=== PATIENT | female | born 1935 | race Caucasian/White ===

== ENCOUNTER 2016-08-01 10:13 | Inpatient (IN) | payer MEDICARE, OTHER ==
[2016-08-01] MEDS ORDERED: Albuterol 6.7 GM Inhaler INH PRN (15:01)
[2016-08-01] MEDS ORDERED: Ondansetron 4 MG/2 ML SDV IVPUSH PRN (15:06)
--- NOTE | 2016-08-01 15:16 | PCM.HP ---
H&P History of Present Illness - General Date of Service: 08/01/16 Admit Problem/Dx: Admission Diagnosis/Problem Admission Diagnosis/Problem Weakness - History of Present Illness Initial Comments - Free Text/Narative: The patient is an 80-year-old lady who was transferred to a swing bed after right total knee arthroplasty. She has a history of hypertension, dyslipidemia, asthma. Onset of Symptoms: Reports: Other (since surgery) Location: Reports: Lower Extremity, Right (name) Quality: Reports: Sharp Severity: Moderate Improves with: Reports: Rest Worsens with: Reports: Movement Associated Symptoms: Denies: Chest Pain, Cough, Fever/Chills, Rash - Related Data Home Medications: Home Meds Acetaminophen [Tylenol] 650 mg PO QID PRN 08/01/16 [History] Aspirin [Aspirin EC] 325 mg PO BIDMEALS 08/01/16 [History] Calcium Carbonate [Tums] 1,000 mg PO DAILY 08/01/16 [History] Cyanocobalamin (Vitamin B-12) [Vitamin B-12] 1,000 mcg PO DAILY 08/01/16 [ History] Dorzolamide HCl/Timolol Maleat [Cosopt Eye Drops] 1 drop EYEBOTH BID 08/01/16 [ History] Ergocalciferol (Vitamin D2) [Vitamin D] 1,000 intunit PO DAILY 08/01/16 [History ] Ferrous Sulfate 325 mg PO DAILY 08/01/16 [History] Latanoprost [Xalatan 0.005% Ophth Soln] 1 drop EYEBOTH BEDTIME 08/01/16 [History ] Morphine [MS Contin] 15 mg PO Q12HR 08/01/16 [History] Multivitamin with Minerals [Multiple Vitamin] 1 tab PO DAILY 08/01/16 [History] Pravastatin Sodium [Pravachol] 20 mg PO BEDTIME 08/01/16 [History] Raloxifene HCl [Evista] 60 mg PO DAILY 08/01/16 [History] Sennosides [Senokot] 8.6 mg PO BID 08/01/16 [History] oxyCODONE 5 mg PO Q4H PRN 08/01/16 [History] traMADol [Ultram] 50 mg PO Q4HR PRN MDD 400 mg 08/01/16 [History] Past Medical History HEENT History: Reports: Cataract, Glaucoma Cardiovascular History: Reports: High Cholesterol Respiratory History: Reports: Asthma, Other (See Below) Other Respiratory History: seasonal allergies Gastrointestinal History: Reports: None Genitourinary History: Reports: UTI, Recurrent, Other (See Below) Other Genitourinary History: UTI last fall, prolapsed bladder and uterus INFORMATION ASSURANCE ANALYST History: Reports: Prolapsed Uterus, Other (See Below) Other OB/BYN History: Hx of benign breast biopsies Musculoskeletal History: Reports: Osteoarthritis, Osteoporosis Neurological History: Reports: None Psychiatric History: Reports: None Endocrine/Metabolic History: Reports: Hypothyroidism, Osteoporosis, Vitamin D Deficiency Hematologic History: Reports: B12 Deficiency, Iron Deficiency Immunologic History: Reports: None Oncologic (Cancer) History: Reports: None Dermatologic History: Reports: Eczema - Infectious Disease History Infectious Disease History: Reports: Chicken Pox, Measles, Scarlet Fever - Past Surgical History Head Surgeries/Procedures: Reports: None HEENT Surgical History: Reports: Cataract Surgery Cardiovascular Surgical History: Reports: None GI Surgical History: Reports: Hernia, Inguinal Female Surgical History: Reports: Hysterectomy Endocrine Surgical History: Reports: None Musculoskeletal Surgical History: Reports: Knee Replacement, Shoulder Surgery Social & Family History - Family History Family Medical History: Noncontributory - Tobacco Use Smoking Status *Q: Never Smoker Second Hand Smoke Exposure: No - Caffeine Use Caffeine Use: Reports: Soda - Recreational Drug Use Recreational Drug Use: No H&P Review of Systems - Review of Systems: Review Of Systems: See Below General: Denies: Fever Cardiovascular: Denies: Chest Pain Gastrointestinal: Denies: Abdominal Pain Musculoskeletal: Denies: Neck Pain Psychiatric: Denies: Confusion Neurological: Denies: Dizziness Hematologic/Lymphatic: Reports: Anemia Exam - Exam Exam: See Below - Vital Signs Vital Signs: Last Vital Signs Temp 37.1 C 08/01/16 13:28 Pulse 81 08/01/16 13:28 Resp 20 08/01/16 13:28 BP 128/48 L 08/01/16 13:28 Pulse Ox 98 08/01/16 13:28 Weight: 66.95 kg - Exam General: Alert, Oriented Neck: Supple Lungs: Clear to Auscultation, Normal Respiratory Effort Cardiovascular: Regular Rate, Regular Rhythm Abdomen: Normal Bowel Sounds, Soft Extremities: Edema (trace amount on the right) Neuro Extensive - Mental Status: Alert, Oriented x3, Normal Mood/Affect, Normal Cognition Psychiatric: Alert, Normal Affect, Normal Mood *Q Meaningful Use (ADM) - VTE *Q VTE Criteria *Q: - Stroke *Q Stroke Criteria *Q: - AMI *Q AMI Criteria *Q: - Problem List (1) Status post right knee replacement SNOMED Code(s): 045034227, 387308001, 172015534 ICD Code: Z96.651 - PRESENCE OF RIGHT ARTIFICIAL KNEE JOINT Status: Acute Current Visit: Yes Problem List Initiated/Reviewed/Updated: Yes Orders Last 24hrs: Active Orders 24 hr Category Date Time Status Antiembolic Devices [RC] PER UNIT ROUTINE Care 08/01/16 15:07 Active Oxygen Therapy [RC] PRN Care 08/01/16 15:04 Active Oxygen Therapy [RC] PRN Care 08/01/16 15:06 Active RT Post Treatment Assessment [RC] Click To Edit Care 08/01/16 15:01 Active RT Pre-Treatment Assessment [RC] Click To Edit Care 08/01/16 15:01 Active Up With Assistance [RC] ASDIRECTED Care 08/01/16 15:06 Active VTE/DVT Education [RC] PER UNIT ROUTINE Care 08/01/16 15:04 Active VTE/DVT Education [RC] PER UNIT ROUTINE Care 08/01/16 15:06 Active Vital Signs [RC] QSHIFT Care 08/01/16 15:04 Active OT Evaluation and Treatment [CONS] Routine Cons 08/01/16 15:06 Active PT Evaluation and Treatment [CONS] Routine Cons 08/01/16 15:06 Active Regular Diet [DIET] Diet 08/01/16 Dinner Active Acetaminophen [Tylenol] Med 08/01/16 14:42 Active 650 mg PO Q4H PRN Albuterol [Proventil HFA] Med 08/01/16 15:01 Active 0 gm INH Q4H PRN Aspirin [Ecotrin] Med 08/01/16 18:00 Active 325 mg PO BIDMEALS Calcium Carbonate [Tums] Med 08/02/16 09:00 Active 1,000 mg PO DAILY Cyanocobalamin (Vitamin B12) [Vitamin B12] Med 08/02/16 09:00 Active 500 mcg PO DAILY Docusate Sodium [Colace] Med 08/01/16 15:06 Active 100 mg PO BID PRN Docusate Sodium/Sennosides [Senna Plus] Med 08/01/16 15:06 Ordered 1 tab PO BEDTIME PRN Dorzolamide/Timolol [Cosopt 2%-0.5% Ophth Soln] Med 08/01/16 21:00 Ordered DOSE ml EYEBOTH BID Ergocalciferol (Vitamin D2) [Vitamin D] Med 08/02/16 09:00 Ordered 400 intunit PO DAILY Ferrous Sulfate Med 08/02/16 09:00 Active 325 mg PO DAILY Latanoprost [Xalatan 0.005% Ophth Soln] Med 08/01/16 21:00 Ordered DOSE ml EYEBOTH BEDTIME Morphine [MS Contin] Med 08/01/16 21:00 Active 15 mg PO Q12HR Multivitamin with Minerals [Multiple Vitamin] Med 08/02/16 09:00 Ordered 1 tab PO DAILY Ondansetron [Zofran ODT] Med 08/01/16 15:06 Ordered 4 mg PO Q6H PRN Ondansetron [Zofran] Med 08/01/16 15:06 Ordered 4 mg IVPUSH Q6H PRN Polyethylene Glycol 3350 [MiraLAX] Med 08/01/16 15:06 Ordered 17 gm PO DAILY PRN Pravastatin [Pravachol] Med 08/01/16 21:00 Active 20 mg PO BEDTIME Raloxifene HCl Med 08/02/16 09:00 Ordered 60 mg PO DAILY Zolpidem [Ambien] Med 08/01/16 15:06 Active 5 mg PO BEDTIME PRN oxyCODONE Med 08/01/16 14:57 Active 5 mg PO Q4H PRN Antiembolic Hose [OM.PC] Per Unit Routine Oth 08/01/16 15:06 Ordered Resuscitation Status Routine Resus Stat 08/01/16 15:04 Ordered Medication Orders Acetaminophen (Tylenol) 650 mg PO Q4H PRN PRN Reason: Pain (mild 1-3) Albuterol (Proventil Hfa) 0 gm INH Q4H PRN PRN Reason: Shortness of Breath Aspirin (Ecotrin) 325 mg PO BIDMEALS [facility] Calcium Carbonate/Glycine (Tums) 1,000 mg PO DAILY [facility] Cyanocobalamin (Vitamin B12) 500 mcg PO DAILY [facility] Docusate Sodium (Colace) 100 mg PO BID PRN PRN Reason: Constipation Dorzolamide/Timolol (Cosopt 2%-0.5% Ophth Soln) ml EYEBOTH BID [facility] Ferrous Sulfate (Ferrous Sulfate) 325 mg PO DAILY [facility] Latanoprost (Xalatan 0.005% Ophth Soln) ml EYEBOTH BEDTIME [facility] Morphine Sulfate (Ms Contin) 15 mg PO Q12HR [facility] Non-Formulary Medication (Ergocalciferol (Vitamin D2) [Vitamin D]) 400 intunit PO DAILY [facility] Non-Formulary Medication (Multivitamin With Minerals [Multiple Vitamin]) 1 tab PO DAILY [facility] Non-Formulary Medication (Raloxifene Hcl) 60 mg PO DAILY [facility] Ondansetron HCl (Zofran Odt) 4 mg PO Q6H PRN PRN Reason: nausea, able to take PO Ondansetron HCl (Zofran) 4 mg IVPUSH Q6H PRN PRN Reason: Nausea/Vomiting Oxycodone HCl (Oxycodone) 5 mg PO Q4H PRN PRN Reason: Pain (moderate 4-6) Polyethylene Glycol (Miralax) 17 gm PO DAILY PRN PRN Reason: Constipation Pravastatin Sodium (Pravachol) 20 mg PO BEDTIME [facility] Senna/Docusate Sodium (Senna Plus) 1 tab PO BEDTIME PRN PRN Reason: Constipation Zolpidem Tartrate (Ambien) 5 mg PO BEDTIME PRN PRN Reason: Sleep Assessment/Plan Comment:: The patient is an 80-year-old lady who was transferred to a swing bed after right total knee arthroplasty. She has a history of hypertension, dyslipidemia, asthma. Right total knee arthroplasty DVT prophylaxis with aspirin twice a day Pain control with Tylenol, oxycodone prn Anemia, estimated surgical blood loss was only 50 cc Treatment with iron Use of stool softeners Follow hemoglobin periodically History of asthma No acute exacerbation Use prn albuterol Dyslipidemia Treat with Pravachol
[2016-08-01] MEDS: Polyethylene Glycol 3350 Powder 17 GM Packet PO PRN (17:05)
[2016-08-01] MEDS: Docusate Sodium 100 MG Cap PO PRN (17:17)
[2016-08-01] MEDS: Aspirin 325 MG Tab.EC PO SCH (17:17)
[2016-08-01] MEDS: oxyCODONE 5 MG Tab PO PRN ×2 (17:18→21:31)
[2016-08-01] MEDS: Pravastatin 20 MG Tab PO SCH (20:26)
[2016-08-01] MEDS: LATANOPROST 0.005% EYEBOTH SCH (20:29)
[2016-08-01] MEDS: DORZOLAMIDE EYEBOTH SCH (20:55)
[2016-08-01] MEDS: TIMOLOL EYEBOTH SCH (20:55)
[2016-08-01] MEDS ORDERED: Morphine 15 MG Tab.ER PO SCH (21:00)
[2016-08-01] MEDS: Zolpidem 5 MG Tab PO PRN (21:33)
[2016-08-02] MEDS: Cyanocobalamin (Vitamin B12) 100 MCG Tab PO SCH (08:23)
[2016-08-02] MEDS: Multivitamins, Therapeutic with Minerals Tab PO SCH (08:24)
[2016-08-02] MEDS: Aspirin 325 MG Tab.EC PO SCH ×2 (08:24→18:18)
[2016-08-02] MEDS: Ferrous Sulfate 325 MG Tab PO SCH (08:25)
[2016-08-02] MEDS: Cholecalciferol (Vitamin D3) 400 Unit Tab PO SCH (08:26)
[2016-08-02] MEDS: oxyCODONE 5 MG Tab PO PRN ×4 (08:26→22:34)
[2016-08-02] MEDS: DORZOLAMIDE EYEBOTH SCH ×2 (08:28→21:04)
[2016-08-02] MEDS: TIMOLOL EYEBOTH SCH ×2 (08:28→21:04)
[2016-08-02] MEDS: Calcium Carbonate 500 MG Tab.Chew PO SCH (08:29)
[2016-08-02] MEDS: Docusate Sodium 100 MG Cap PO PRN (08:54)
[2016-08-02] MEDS: RALOXIFENE HCL 60 MG PO SCH (09:52)
[2016-08-02] MEDS: Ondansetron 4 MG Tab.DIS PO PRN (18:00)
[2016-08-02] MEDS: Pravastatin 20 MG Tab PO SCH (21:05)
[2016-08-02] MEDS: Lactulose Soln 10 GM/15 ML 30 ML UD Cup PO SCH (21:07)
[2016-08-02] MEDS: LATANOPROST 0.005% EYEBOTH SCH (21:30)
[2016-08-02] MEDS: Zolpidem 5 MG Tab PO PRN (22:36)
[2016-08-03] MEDS: Aspirin 325 MG Tab.EC PO SCH ×2 (07:41→17:16)
[2016-08-03] MEDS: oxyCODONE 5 MG Tab PO PRN ×4 (07:41→22:19)
[2016-08-03] MEDS: Cholecalciferol (Vitamin D3) 400 Unit Tab PO SCH (08:44)
[2016-08-03] MEDS: Ferrous Sulfate 325 MG Tab PO SCH (08:44)
[2016-08-03] MEDS: Calcium Carbonate 500 MG Tab.Chew PO SCH (08:44)
[2016-08-03] MEDS: Multivitamins, Therapeutic with Minerals Tab PO SCH (08:44)
[2016-08-03] MEDS: RALOXIFENE HCL 60 MG PO SCH (08:45)
[2016-08-03] MEDS: Lactulose Soln 10 GM/15 ML 30 ML UD Cup PO SCH ×2 (08:46→22:16)
[2016-08-03] MEDS: TIMOLOL EYEBOTH SCH ×2 (08:46→22:14)
[2016-08-03] MEDS: DORZOLAMIDE EYEBOTH SCH ×2 (08:46→22:14)
[2016-08-03] MEDS: Cyanocobalamin (Vitamin B12) 100 MCG Tab PO SCH (11:28)
[2016-08-03] MEDS: Pravastatin 20 MG Tab PO SCH (22:16)
[2016-08-03] MEDS: Zolpidem 5 MG Tab PO PRN (22:21)
[2016-08-03] MEDS: LATANOPROST 0.005% EYEBOTH SCH (22:38)
[2016-08-04] MEDS: oxyCODONE 5 MG Tab PO PRN ×4 (07:57→21:25)
[2016-08-04] MEDS: Aspirin 325 MG Tab.EC PO SCH ×2 (07:57→17:16)
[2016-08-04] MEDS: Ferrous Sulfate 325 MG Tab PO SCH (08:56)
[2016-08-04] MEDS: Multivitamins, Therapeutic with Minerals Tab PO SCH (08:57)
[2016-08-04] MEDS: Calcium Carbonate 500 MG Tab.Chew PO SCH (08:57)
[2016-08-04] MEDS: Cholecalciferol (Vitamin D3) 400 Unit Tab PO SCH (08:57)
[2016-08-04] MEDS: Lactulose Soln 10 GM/15 ML 30 ML UD Cup PO SCH (08:58)
[2016-08-04] MEDS: RALOXIFENE HCL 60 MG PO SCH (08:59)
[2016-08-04] MEDS: TIMOLOL EYEBOTH SCH ×2 (08:59→20:33)
[2016-08-04] MEDS: DORZOLAMIDE EYEBOTH SCH ×2 (08:59→20:33)
[2016-08-04] MEDS: Cyanocobalamin (Vitamin B12) 100 MCG Tab PO SCH (09:40)
[2016-08-04] MEDS: Pravastatin 20 MG Tab PO SCH (20:34)
[2016-08-04] MEDS: LATANOPROST 0.005% EYEBOTH SCH (21:11)
[2016-08-04] MEDS: Zolpidem 5 MG Tab PO PRN (21:27)
[2016-08-05] MEDS: oxyCODONE 5 MG Tab PO PRN ×4 (06:46→21:47)
[2016-08-05 07:02] LABS: CHLORIDE,CL 105 mmol/L (101-111); SODIUM,NA 138 mmol/L (135-145)
[2016-08-05] MEDS: Aspirin 325 MG Tab.EC PO SCH ×2 (08:01→17:19)
[2016-08-05] MEDS: Calcium Carbonate 500 MG Tab.Chew PO SCH (08:42)
[2016-08-05] MEDS: TIMOLOL EYEBOTH SCH ×2 (08:42→21:49)
[2016-08-05] MEDS: DORZOLAMIDE EYEBOTH SCH ×2 (08:42→21:49)
[2016-08-05] MEDS: RALOXIFENE HCL 60 MG PO SCH (08:43)
[2016-08-05] MEDS: Cyanocobalamin (Vitamin B12) 100 MCG Tab PO SCH (08:43)
[2016-08-05] MEDS: Ferrous Sulfate 325 MG Tab PO SCH (08:43)
[2016-08-05] MEDS: Cholecalciferol (Vitamin D3) 400 Unit Tab PO SCH (08:43)
[2016-08-05] MEDS: Multivitamins, Therapeutic with Minerals Tab PO SCH (10:38)
--- NOTE | 2016-08-05 12:48 | PCM.PN ---
- General Info Date of Service: 08/05/16 Admission Dx/Problem (Free Text): Admission Diagnosis/Problem Admission Diagnosis/Problem Weakness Subjective Update: feeling well, eating okay. Working with physical therapy and occupational therapy No chest pain, shortness of breath, fever Functional Status: Reports: pain controlled - Review of Systems General: Denies: Fever Pulmonary: Denies: shortness of breath Cardiovascular: Denies: Chest Pain Gastrointestinal: Denies: Abdominal pain Genitourinary: Denies: dysuria Neurological: Denies: Confusion - Patient Data Vitals - most recent: Last Vital Signs Temp 36.7 C 08/05/16 07:00 Pulse 86 08/05/16 07:00 Resp 20 08/05/16 07:00 BP 113/40 L 08/05/16 07:00 Pulse Ox 99 08/05/16 07:00 Weight - most recent: 66.95 kg I&O - last 24 hours: Intake & Output 08/04/16 08/05/16 08/05/16 22:59 06:59 14:59 Intake Total 150 450 820 Output Total 200 700 400 Balance -50 -250 420 Lab Results last 24 hrs: Laboratory Results - last 24 hr 08/05/16 08/05/16 Range/Units 06:12 06:12 WBC 7.9 (5.0-10.0) 10^3/uL RBC 3.18 L (4.2-5.4) 10^6/uL Hgb 9.7 L (12.0-16.0) g/dL Hct 30.9 L (37.0-47.0) % MCV 97.2 (80-100) fL MCH 30.5 (27.0-34.0) pg MCHC 31.4 L (33.0-35.0) g/dL Plt Count 251 (150-450) 10^3/uL Neut % (Auto) 67.0 (42.2-75.2) % Lymph % (Auto) 16.0 L (20.5-50.1) % [place] % (Auto) 11.1 H (2-8) % Eos % (Auto) 5.5 H (1.0-3.0) % Baso % (Auto) 0.4 (0.0-1.0) % Sodium 138 (135-145) mmol/L Potassium 3.8 (3.6-5.0) mmol/L Chloride 105 (101-111) mmol/L Carbon Dioxide 26.0 (21.0-31.0) mmol/L Anion Gap 10.8 BUN 12 (7-18) mg/dL Creatinine 0.6 (0.6-1.3) mg/dL Est Cr Clr Drug Dosing 61.86 mL/min Estimated GFR (MDRD) > 60 Glucose 128 H (74-105) mg/dL Calcium 8.7 (8.4-10.2) mg/dl Med Orders - Current: Current Medications Acetaminophen (Tylenol) 650 mg PO Q4H PRN PRN Reason: Pain (mild 1-3) Albuterol (Proventil Hfa) 0 gm INH Q4H PRN PRN Reason: Shortness of Breath Aspirin (Ecotrin) 325 mg PO BIDMEALS [facility] Last Admin: 08/05/16 08:01 Dose: 325 mg Calcium Carbonate/Glycine (Tums) 1,000 mg PO DAILY [facility] Last Admin: 08/05/16 08:42 Dose: 1,000 mg Cholecalciferol (Vitamin D3) 400 units PO DAILY [facility] Last Admin: 08/05/16 08:43 Dose: 400 units Cyanocobalamin (Vitamin B12) 500 mcg PO DAILY [facility] Last Admin: 08/05/16 08:43 Dose: 500 mcg Docusate Sodium (Colace) 100 mg PO BID PRN PRN Reason: Constipation Last Admin: 08/02/16 08:54 Dose: 100 mg Ferrous Sulfate (Ferrous Sulfate) 325 mg PO DAILY [facility] Last Admin: 08/05/16 08:43 Dose: 325 mg Multivitamins/Minerals (Vitamins And Minerals) 1 tab PO DAILY [facility] Last Admin: 08/05/16 10:38 Dose: 1 tab Ondansetron HCl (Zofran Odt) 4 mg PO Q6H PRN PRN Reason: nausea, able to take PO Last Admin: 08/02/16 18:00 Dose: 4 mg Oxycodone HCl (Oxycodone) 5 mg PO Q4H PRN PRN Reason: Pain (moderate 4-6) Last Admin: 08/05/16 11:31 Dose: 5 mg Raloxifene Hcl 60 Mg (Own Med) 0 each PO DAILY [facility] Last Admin: 08/05/16 08:43 Dose: 1 each Ptom - Dorzolamide/Timolol 2%-0.5% Ophth Soln 0 each EYEBOTH BID [facility] Last Admin: 08/05/16 08:42 Dose: 1 each Ptom - Latanoprost 0 (.005% Ophth Soln) 0 each EYEBOTH BEDTIME [facility] Last Admin: 08/04/16 21:11 Dose: 1 each Polyethylene Glycol (Miralax) 17 gm PO DAILY PRN PRN Reason: Constipation Last Admin: 08/01/16 17:05 Dose: 17 gm Pravastatin Sodium (Pravachol) 20 mg PO BEDTIME [facility] Last Admin: 08/04/16 20:34 Dose: 20 mg Senna/Docusate Sodium (Senna Plus) 1 tab PO BEDTIME PRN PRN Reason: Constipation Last Admin: 08/01/16 21:22 Dose: 1 tab Zolpidem Tartrate (Ambien) 5 mg PO BEDTIME PRN PRN Reason: Sleep Last Admin: 08/04/16 21:27 Dose: 5 mg Discontinued Medications Lactulose (Cephulac) 20 gm PO BID [facility] Stop: 08/04/16 09:01 Last Admin: 08/04/16 08:58 Dose: 20 gm Morphine Sulfate (Ms Contin) 15 mg PO Q12HR [facility] Ondansetron HCl (Zofran) 4 mg IVPUSH Q6H PRN PRN Reason: Nausea/Vomiting - Exam General: alert, oriented Neck: supple Lungs: Clear to auscultation, Normal respiratory effort Cardiovascular: Regular Rate, Regular Rhythm Extremities: no edema Skin: warm, dry Neurological: no new focal deficit - Problem List & Annotations (1) Status post right knee replacement SNOMED Code(s): 611029534, 796640905, [id number] Code(s): Z96.651 - PRESENCE OF RIGHT ARTIFICIAL KNEE JOINT Status: Acute Current Visit: Yes - Problem List Review Problem List Initiated/Reviewed/Updated: Yes - My Orders Last 24 Hours: My Active Orders 08/04/16 14:26 Communication Order [RC] - Plan Plan:: The patient is an 80-year-old lady who was transferred to a swing bed after right total knee arthroplasty. She has a history of hypertension, dyslipidemia, asthma. She is doing well Right total knee arthroplasty DVT prophylaxis with aspirin twice a day Pain control with Tylenol, oxycodone prn mild postoperative Anemia, estimated surgical blood loss was only 50 cc Treatment with iron Use of stool softeners Follow hemoglobin periodically History of asthma No acute exacerbation Use prn albuterol Dyslipidemia Treat with Pravachol
[2016-08-05] MEDS: Zolpidem 5 MG Tab PO PRN (21:47)
[2016-08-05] MEDS: Pravastatin 20 MG Tab PO SCH (21:47)
[2016-08-05] MEDS: LATANOPROST 0.005% EYEBOTH SCH (21:49)
[2016-08-06] MEDS: oxyCODONE 5 MG Tab PO PRN ×6 (02:33→23:11)
[2016-08-06] MEDS: Calcium Carbonate 500 MG Tab.Chew PO SCH (08:27)
[2016-08-06] MEDS: Multivitamins, Therapeutic with Minerals Tab PO SCH (08:29)
[2016-08-06] MEDS: Cyanocobalamin (Vitamin B12) 100 MCG Tab PO SCH (08:29)
[2016-08-06] MEDS: Ferrous Sulfate 325 MG Tab PO SCH (08:29)
[2016-08-06] MEDS: Cholecalciferol (Vitamin D3) 400 Unit Tab PO SCH (08:29)
[2016-08-06] MEDS: Aspirin 325 MG Tab.EC PO SCH ×2 (08:29→18:15)
[2016-08-06] MEDS: RALOXIFENE HCL 60 MG PO SCH (08:39)
[2016-08-06] MEDS: TIMOLOL EYEBOTH SCH ×2 (08:40→20:59)
[2016-08-06] MEDS: DORZOLAMIDE EYEBOTH SCH ×2 (08:40→20:59)
[2016-08-06] MEDS: Pravastatin 20 MG Tab PO SCH (20:59)
[2016-08-06] MEDS: LATANOPROST 0.005% EYEBOTH SCH (21:00)
[2016-08-06] MEDS: Zolpidem 5 MG Tab PO PRN (23:08)
[2016-08-07] MEDS: Acetaminophen 325 MG Tab PO PRN ×3 (02:18→17:34)
[2016-08-07] MEDS: oxyCODONE 5 MG Tab PO PRN ×5 (06:30→22:44)
[2016-08-07] MEDS: Aspirin 325 MG Tab.EC PO SCH ×2 (08:36→17:33)
[2016-08-07] MEDS: Ferrous Sulfate 325 MG Tab PO SCH (09:25)
[2016-08-07] MEDS: Calcium Carbonate 500 MG Tab.Chew PO SCH (09:25)
[2016-08-07] MEDS: Multivitamins, Therapeutic with Minerals Tab PO SCH (09:26)
[2016-08-07] MEDS: Cholecalciferol (Vitamin D3) 400 Unit Tab PO SCH (09:26)
[2016-08-07] MEDS: Cyanocobalamin (Vitamin B12) 100 MCG Tab PO SCH (09:27)
[2016-08-07] MEDS: TIMOLOL EYEBOTH SCH ×2 (09:29→20:35)
[2016-08-07] MEDS: DORZOLAMIDE EYEBOTH SCH ×2 (09:29→20:35)
[2016-08-07] MEDS: RALOXIFENE HCL 60 MG PO SCH (09:30)
[2016-08-07] MEDS: Pravastatin 20 MG Tab PO SCH (20:33)
[2016-08-07] MEDS: LATANOPROST 0.005% EYEBOTH SCH (20:34)
[2016-08-07] MEDS: Zolpidem 5 MG Tab PO PRN (23:05)
[2016-08-08] MEDS: Acetaminophen 325 MG Tab PO PRN ×2 (00:37→21:49)
[2016-08-08] MEDS: oxyCODONE 5 MG Tab PO PRN ×4 (06:06→19:39)
[2016-08-08] MEDS: Aspirin 325 MG Tab.EC PO SCH ×2 (10:13→17:37)
[2016-08-08] MEDS: Cholecalciferol (Vitamin D3) 400 Unit Tab PO SCH (10:13)
[2016-08-08] MEDS: Ferrous Sulfate 325 MG Tab PO SCH (10:14)
[2016-08-08] MEDS: Cyanocobalamin (Vitamin B12) 100 MCG Tab PO SCH (10:14)
[2016-08-08] MEDS: Multivitamins, Therapeutic with Minerals Tab PO SCH (10:15)
[2016-08-08] MEDS: Calcium Carbonate 500 MG Tab.Chew PO SCH (10:15)
[2016-08-08] MEDS: RALOXIFENE HCL 60 MG PO SCH (10:16)
[2016-08-08] MEDS: TIMOLOL EYEBOTH SCH ×2 (10:17→21:44)
[2016-08-08] MEDS: DORZOLAMIDE EYEBOTH SCH ×2 (10:17→21:44)
[2016-08-08] MEDS: Pravastatin 20 MG Tab PO SCH (21:45)
[2016-08-08] MEDS: LATANOPROST 0.005% EYEBOTH SCH (21:58)
[2016-08-09] MEDS: Zolpidem 5 MG Tab PO PRN (00:57)
[2016-08-09] MEDS: oxyCODONE 5 MG Tab PO PRN ×6 (00:57→21:12)
[2016-08-09] MEDS: Acetaminophen 325 MG Tab PO PRN ×2 (07:48→12:09)
[2016-08-09] MEDS: Calcium Carbonate 500 MG Tab.Chew PO SCH (09:03)
[2016-08-09] MEDS: Cholecalciferol (Vitamin D3) 400 Unit Tab PO SCH (09:04)
[2016-08-09] MEDS: Ibuprofen 200 MG Tab PO PRN ×2 (09:04→17:14)
[2016-08-09] MEDS: Ferrous Sulfate 325 MG Tab PO SCH (09:04)
[2016-08-09] MEDS: Aspirin 325 MG Tab.EC PO SCH ×2 (09:04→17:13)
[2016-08-09] MEDS: Multivitamins, Therapeutic with Minerals Tab PO SCH (09:04)
[2016-08-09] MEDS: Cyanocobalamin (Vitamin B12) 100 MCG Tab PO SCH (09:04)
[2016-08-09] MEDS: DORZOLAMIDE EYEBOTH SCH ×2 (09:06→21:10)
[2016-08-09] MEDS: RALOXIFENE HCL 60 MG PO SCH (09:06)
[2016-08-09] MEDS: TIMOLOL EYEBOTH SCH ×2 (09:06→21:10)
[2016-08-09] MEDS: LATANOPROST 0.005% EYEBOTH SCH (21:10)
[2016-08-09] MEDS: Pravastatin 20 MG Tab PO SCH (21:11)
[2016-08-10] MEDS: Ibuprofen 200 MG Tab PO PRN ×3 (01:13→18:24)
[2016-08-10] MEDS: Zolpidem 5 MG Tab PO PRN (01:14)
[2016-08-10] MEDS: oxyCODONE 5 MG Tab PO PRN ×5 (05:17→22:39)
[2016-08-10] MEDS: Acetaminophen 325 MG Tab PO PRN ×3 (05:18→21:21)
[2016-08-10] MEDS: Multivitamins, Therapeutic with Minerals Tab PO SCH (08:34)
[2016-08-10] MEDS: Cyanocobalamin (Vitamin B12) 100 MCG Tab PO SCH (08:34)
[2016-08-10] MEDS: Ferrous Sulfate 325 MG Tab PO SCH (08:34)
[2016-08-10] MEDS: Aspirin 325 MG Tab.EC PO SCH ×2 (08:34→17:22)
[2016-08-10] MEDS: Calcium Carbonate 500 MG Tab.Chew PO SCH (08:34)
[2016-08-10] MEDS: Cholecalciferol (Vitamin D3) 400 Unit Tab PO SCH (08:34)
[2016-08-10] MEDS: DORZOLAMIDE EYEBOTH SCH ×2 (08:35→21:18)
[2016-08-10] MEDS: TIMOLOL EYEBOTH SCH ×2 (08:35→21:18)
[2016-08-10] MEDS: RALOXIFENE HCL 60 MG PO SCH (08:35)
[2016-08-10] MEDS: Pravastatin 20 MG Tab PO SCH (21:14)
[2016-08-10] MEDS: LATANOPROST 0.005% EYEBOTH SCH (21:18)
[2016-08-11] MEDS: Zolpidem 5 MG Tab PO PRN (01:16)
[2016-08-11] MEDS: Acetaminophen 325 MG Tab PO PRN (01:18)
[2016-08-11] MEDS: Ibuprofen 200 MG Tab PO PRN (03:23)
[2016-08-11] MEDS: oxyCODONE 5 MG Tab PO PRN ×4 (03:26→21:26)
[2016-08-11] MEDS: Aspirin 325 MG Tab.EC PO SCH ×2 (08:51→17:23)
[2016-08-11] MEDS: Cholecalciferol (Vitamin D3) 400 Unit Tab PO SCH (08:51)
[2016-08-11] MEDS: Calcium Carbonate 500 MG Tab.Chew PO SCH (08:51)
[2016-08-11] MEDS: Multivitamins, Therapeutic with Minerals Tab PO SCH (08:51)
[2016-08-11] MEDS: Ferrous Sulfate 325 MG Tab PO SCH (08:51)
[2016-08-11] MEDS: Cyanocobalamin (Vitamin B12) 100 MCG Tab PO SCH (08:51)
[2016-08-11] MEDS: RALOXIFENE HCL 60 MG PO SCH (08:55)
[2016-08-11] MEDS: DORZOLAMIDE EYEBOTH SCH ×2 (17:27→21:37)
[2016-08-11] MEDS: TIMOLOL EYEBOTH SCH ×2 (17:27→21:37)
[2016-08-11] MEDS: Pravastatin 20 MG Tab PO SCH (21:26)
[2016-08-11] MEDS: LATANOPROST 0.005% EYEBOTH SCH (21:29)
[2016-08-12] MEDS: oxyCODONE 5 MG Tab PO PRN ×6 (01:28→23:09)
[2016-08-12] MEDS: Acetaminophen 325 MG Tab PO PRN (08:37)
[2016-08-12] MEDS: Calcium Carbonate 500 MG Tab.Chew PO SCH (08:37)
[2016-08-12] MEDS: Cyanocobalamin (Vitamin B12) 100 MCG Tab PO SCH (08:37)
[2016-08-12] MEDS: Multivitamins, Therapeutic with Minerals Tab PO SCH (08:37)
[2016-08-12] MEDS: Ferrous Sulfate 325 MG Tab PO SCH (08:38)
[2016-08-12] MEDS: Cholecalciferol (Vitamin D3) 400 Unit Tab PO SCH (08:38)
[2016-08-12] MEDS: Aspirin 325 MG Tab.EC PO SCH ×2 (08:38→18:02)
[2016-08-12] MEDS: RALOXIFENE HCL 60 MG PO SCH (08:39)
[2016-08-12] MEDS: DORZOLAMIDE EYEBOTH SCH ×2 (08:41→20:35)
[2016-08-12] MEDS: TIMOLOL EYEBOTH SCH ×2 (08:41→20:35)
[2016-08-12] MEDS: Polyethylene Glycol 3350 Powder 17 GM Packet PO PRN (09:51)
[2016-08-12] MEDS: Ibuprofen 200 MG Tab PO PRN (14:04)
[2016-08-12] MEDS ORDERED: Ibuprofen 600 MG Tab PO SCH (16:00)
[2016-08-12] MEDS: Pravastatin 20 MG Tab PO SCH (20:42)
[2016-08-12] MEDS: LATANOPROST 0.005% EYEBOTH SCH (22:19)
[2016-08-12] MEDS: Zolpidem 5 MG Tab PO PRN (22:21)
[2016-08-12] MEDS: Ibuprofen 600 MG Tab PO SCH (22:22)
[2016-08-13] MEDS: Ibuprofen 600 MG Tab PO SCH ×3 (05:18→19:04)
[2016-08-13] MEDS: Calcium Carbonate 500 MG Tab.Chew PO SCH (08:55)
[2016-08-13] MEDS: Cholecalciferol (Vitamin D3) 400 Unit Tab PO SCH (08:56)
[2016-08-13] MEDS: Aspirin 325 MG Tab.EC PO SCH ×2 (08:56→17:46)
[2016-08-13] MEDS: Cyanocobalamin (Vitamin B12) 100 MCG Tab PO SCH (08:56)
[2016-08-13] MEDS: Ferrous Sulfate 325 MG Tab PO SCH (08:57)
[2016-08-13] MEDS: oxyCODONE 5 MG Tab PO PRN ×3 (08:58→17:48)
[2016-08-13] MEDS: RALOXIFENE HCL 60 MG PO SCH (09:02)
[2016-08-13] MEDS: DORZOLAMIDE EYEBOTH SCH ×2 (09:02→20:34)
[2016-08-13] MEDS: TIMOLOL EYEBOTH SCH ×2 (09:02→20:34)
[2016-08-13] MEDS: Multivitamins, Therapeutic with Minerals Tab PO SCH (11:15)
--- NOTE | 2016-08-13 18:14 | PCM.PN ---
- General Info Date of Service: 08/13/16 Subjective Update: patient recently visited with the orthopedics and was advised to continue with range of motion exercises and therapy. denies significant pain although she reports that it would be better if she gets on top of it.no side effects from the medication, and denies any constipation or nausea Functional Status: Reports: ambulating - Patient Data Vitals - most recent: Last Vital Signs Temp 37.5 C 08/13/16 15:00 Pulse 78 08/13/16 15:00 Resp 20 08/13/16 15:00 BP 136/51 L 08/13/16 15:00 Pulse Ox 99 08/13/16 15:00 Weight - most recent: 63.775 kg I&O - last 24 hours: Intake & Output 08/13/16 08/13/16 08/13/16 06:59 14:59 22:59 Intake Total 200 800 Balance 200 800 Med Orders - Current: Current Medications Acetaminophen (Tylenol) 650 mg PO Q4H PRN PRN Reason: Pain (mild 1-3) Last Admin: 08/12/16 08:37 Dose: 650 mg Albuterol (Proventil Hfa) 0 gm INH Q4H PRN PRN Reason: Shortness of Breath Aspirin (Ecotrin) 325 mg PO BIDMEALS [facility] Last Admin: 08/13/16 17:46 Dose: 325 mg Calcium Carbonate/Glycine (Tums) 1,000 mg PO DAILY [facility] Last Admin: 08/13/16 08:55 Dose: 1,000 mg Cholecalciferol (Vitamin D3) 400 units PO DAILY [facility] Last Admin: 08/13/16 08:56 Dose: 400 units Cyanocobalamin (Vitamin B12) 500 mcg PO DAILY [facility] Last Admin: 08/13/16 08:56 Dose: 500 mcg Docusate Sodium (Colace) 100 mg PO BID PRN PRN Reason: Constipation Last Admin: 08/02/16 08:54 Dose: 100 mg Ferrous Sulfate (Ferrous Sulfate) 325 mg PO DAILY [facility] Last Admin: 08/13/16 08:57 Dose: 325 mg Ibuprofen (Motrin) 600 mg PO TID@0600,1400,2200 [facility] Last Admin: 08/13/16 13:46 Dose: 600 mg Multivitamins/Minerals (Vitamins And Minerals) 1 tab PO DAILY [facility] Last Admin: 08/13/16 11:15 Dose: 1 tab Ondansetron HCl (Zofran Odt) 4 mg PO Q6H PRN PRN Reason: nausea, able to take PO Last Admin: 08/02/16 18:00 Dose: 4 mg Oxycodone HCl (Oxycodone) 5 mg PO Q4H PRN PRN Reason: Pain (moderate 4-6) Last Admin: 08/13/16 17:48 Dose: 5 mg Raloxifene Hcl 60 Mg (Own Med) 0 each PO DAILY [facility] Last Admin: 08/13/16 09:02 Dose: 1 each Ptom - Dorzolamide/Timolol 2%-0.5% Ophth Soln 0 each EYEBOTH BID [facility] Last Admin: 08/13/16 09:02 Dose: 1 each Ptom - Latanoprost 0 (.005% Ophth Soln) 0 each EYEBOTH BEDTIME [facility] Last Admin: 08/12/16 22:19 Dose: 1 each Polyethylene Glycol (Miralax) 17 gm PO DAILY PRN PRN Reason: Constipation Last Admin: 08/12/16 09:51 Dose: 17 gm Pravastatin Sodium (Pravachol) 20 mg PO BEDTIME [facility] Last Admin: 08/12/16 20:42 Dose: 20 mg Senna/Docusate Sodium (Senna Plus) 1 tab PO BEDTIME PRN PRN Reason: Constipation Last Admin: 08/01/16 21:22 Dose: 1 tab Zolpidem Tartrate (Ambien) 5 mg PO BEDTIME PRN PRN Reason: Sleep Last Admin: 08/12/16 22:21 Dose: 5 mg Discontinued Medications Ibuprofen (Motrin) 200 mg PO Q8H PRN PRN Reason: Pain Last Admin: 08/12/16 14:04 Dose: 200 mg Ibuprofen (Motrin) 600 mg PO Q8H [facility] Last Admin: 08/12/16 17:24 Dose: Not Given Lactulose (Cephulac) 20 gm PO BID [facility] Stop: 08/04/16 09:01 Last Admin: 08/04/16 08:58 Dose: 20 gm Morphine Sulfate (Ms Contin) 15 mg PO Q12HR [facility] Ondansetron HCl (Zofran) 4 mg IVPUSH Q6H PRN PRN Reason: Nausea/Vomiting - Exam General: alert, oriented Lungs: Normal respiratory effort - Problem List & Annotations (1) Status post right knee replacement SNOMED Code(s): 575203758, 536686490, [id number] Code(s): Z96.651 - PRESENCE OF RIGHT ARTIFICIAL KNEE JOINT Status: Acute Current Visit: Yes - Problem List Review Problem List Initiated/Reviewed/Updated: Yes - My Orders Last 24 Hours: My Active Orders 08/12/16 22:00 Ibuprofen [Motrin] 600 mg PO TID@0600,1400,2200 08/13/16 18:15 Ibuprofen [Motrin] 600 mg PO Q6H - Plan Plan:: status post right total knee arthroplasty - Continue pain control: she is on oxycodone as needed; we have recently increase the Motrin to 600 every 8 hours, but increase this to every 6 hours - Continue with physical therapy History of asthma: stable post operative anemia - hemoglobin around 9.7 g, stable from previous level - Monitor CBC periodically, no signs of bleeding
[2016-08-13] MEDS: Pravastatin 20 MG Tab PO SCH (20:35)
[2016-08-13] MEDS: LATANOPROST 0.005% EYEBOTH SCH (20:59)
[2016-08-14] MEDS: Ibuprofen 600 MG Tab PO SCH ×5 (00:13→23:35)
[2016-08-14] MEDS: Zolpidem 5 MG Tab PO PRN ×2 (00:13→23:34)
[2016-08-14] MEDS: Calcium Carbonate 500 MG Tab.Chew PO SCH (08:31)
[2016-08-14] MEDS: Cholecalciferol (Vitamin D3) 400 Unit Tab PO SCH (08:31)
[2016-08-14] MEDS: Aspirin 325 MG Tab.EC PO SCH ×2 (08:32→18:32)
[2016-08-14] MEDS: Multivitamins, Therapeutic with Minerals Tab PO SCH (08:32)
[2016-08-14] MEDS: oxyCODONE 5 MG Tab PO PRN ×2 (08:32→23:36)
[2016-08-14] MEDS: Ferrous Sulfate 325 MG Tab PO SCH (08:32)
[2016-08-14] MEDS: DORZOLAMIDE EYEBOTH SCH ×2 (08:34→21:27)
[2016-08-14] MEDS: RALOXIFENE HCL 60 MG PO SCH (08:34)
[2016-08-14] MEDS: TIMOLOL EYEBOTH SCH ×2 (08:34→21:27)
[2016-08-14] MEDS: Cyanocobalamin (Vitamin B12) 100 MCG Tab PO SCH (10:24)
[2016-08-14] MEDS: Polyethylene Glycol 3350 Powder 17 GM Packet PO PRN (12:34)
[2016-08-14] MEDS: Pravastatin 20 MG Tab PO SCH (21:25)
[2016-08-14] MEDS: LATANOPROST 0.005% EYEBOTH SCH (21:54)
[2016-08-15] MEDS: Ibuprofen 600 MG Tab PO SCH ×3 (05:51→17:44)
[2016-08-15] MEDS: Ondansetron 4 MG Tab.DIS PO PRN ×2 (08:48→16:45)
[2016-08-15] MEDS: Cyanocobalamin (Vitamin B12) 100 MCG Tab PO SCH (08:48)
[2016-08-15] MEDS: Ferrous Sulfate 325 MG Tab PO SCH (08:49)
[2016-08-15] MEDS: Multivitamins, Therapeutic with Minerals Tab PO SCH (08:50)
[2016-08-15] MEDS: Cholecalciferol (Vitamin D3) 400 Unit Tab PO SCH (08:50)
[2016-08-15] MEDS: Aspirin 325 MG Tab.EC PO SCH ×2 (08:50→17:44)
[2016-08-15] MEDS: oxyCODONE 5 MG Tab PO PRN ×3 (08:51→21:26)
[2016-08-15] MEDS: Calcium Carbonate 500 MG Tab.Chew PO SCH (08:51)
[2016-08-15] MEDS: RALOXIFENE HCL 60 MG PO SCH (08:53)
[2016-08-15] MEDS: TIMOLOL EYEBOTH SCH ×2 (08:54→21:29)
[2016-08-15] MEDS: DORZOLAMIDE EYEBOTH SCH ×2 (08:54→21:29)
[2016-08-15] MEDS: Pravastatin 20 MG Tab PO SCH (21:26)
[2016-08-15] MEDS: Docusate Sodium 100 MG Cap PO PRN (21:26)
[2016-08-15] MEDS: LATANOPROST 0.005% EYEBOTH SCH (21:30)
[2016-08-16] MEDS: Ibuprofen 600 MG Tab PO SCH ×4 (00:36→18:17)
[2016-08-16] MEDS: oxyCODONE 5 MG Tab PO PRN ×3 (06:25→20:08)
[2016-08-16] MEDS: Cyanocobalamin (Vitamin B12) 100 MCG Tab PO SCH (09:48)
[2016-08-16] MEDS: Cholecalciferol (Vitamin D3) 400 Unit Tab PO SCH (09:48)
[2016-08-16] MEDS: Ferrous Sulfate 325 MG Tab PO SCH (09:48)
[2016-08-16] MEDS: Multivitamins, Therapeutic with Minerals Tab PO SCH (09:48)
[2016-08-16] MEDS: Calcium Carbonate 500 MG Tab.Chew PO SCH (09:49)
[2016-08-16] MEDS: Aspirin 325 MG Tab.EC PO SCH ×2 (09:49→18:16)
[2016-08-16] MEDS: RALOXIFENE HCL 60 MG PO SCH (09:53)
[2016-08-16] MEDS: DORZOLAMIDE EYEBOTH SCH ×2 (09:55→21:46)
[2016-08-16] MEDS: TIMOLOL EYEBOTH SCH ×2 (09:55→21:46)
[2016-08-16] MEDS: Acetaminophen 325 MG Tab PO PRN ×2 (14:29→20:08)
[2016-08-16] MEDS: Docusate Sodium 100 MG Cap PO PRN (14:38)
[2016-08-16] MEDS: Pravastatin 20 MG Tab PO SCH (21:45)
[2016-08-16] MEDS: LATANOPROST 0.005% EYEBOTH SCH (21:46)
[2016-08-17] MEDS: oxyCODONE 5 MG Tab PO PRN ×4 (00:10→21:00)
[2016-08-17] MEDS: Ibuprofen 600 MG Tab PO SCH ×4 (00:10→17:29)
[2016-08-17] MEDS: Acetaminophen 325 MG Tab PO PRN ×2 (04:10→16:25)
[2016-08-17] MEDS: Aspirin 325 MG Tab.EC PO SCH ×2 (08:54→17:29)
[2016-08-17] MEDS: Multivitamins, Therapeutic with Minerals Tab PO SCH (08:54)
[2016-08-17] MEDS: Cholecalciferol (Vitamin D3) 400 Unit Tab PO SCH (08:54)
[2016-08-17] MEDS: Ferrous Sulfate 325 MG Tab PO SCH (08:55)
[2016-08-17] MEDS: Cyanocobalamin (Vitamin B12) 100 MCG Tab PO SCH (08:55)
[2016-08-17] MEDS: Calcium Carbonate 500 MG Tab.Chew PO SCH (08:55)
[2016-08-17] MEDS: TIMOLOL EYEBOTH SCH ×2 (08:57→21:02)
[2016-08-17] MEDS: DORZOLAMIDE EYEBOTH SCH ×2 (08:57→21:02)
[2016-08-17] MEDS: RALOXIFENE HCL 60 MG PO SCH (08:59)
[2016-08-17] MEDS: Pravastatin 20 MG Tab PO SCH (21:00)
[2016-08-17] MEDS: LATANOPROST 0.005% EYEBOTH SCH (21:02)
[2016-08-18] MEDS: Zolpidem 5 MG Tab PO PRN (00:03)
[2016-08-18] MEDS: Ibuprofen 600 MG Tab PO SCH ×4 (00:07→17:51)
[2016-08-18] MEDS: Ondansetron 4 MG Tab.DIS PO PRN (09:19)
[2016-08-18] MEDS: oxyCODONE 5 MG Tab PO PRN ×4 (09:19→21:52)
[2016-08-18] MEDS: Docusate Sodium 100 MG Cap PO PRN (09:20)
[2016-08-18] MEDS: Cyanocobalamin (Vitamin B12) 100 MCG Tab PO SCH (09:21)
[2016-08-18] MEDS: Ferrous Sulfate 325 MG Tab PO SCH (09:22)
[2016-08-18] MEDS: Cholecalciferol (Vitamin D3) 400 Unit Tab PO SCH (09:22)
[2016-08-18] MEDS: Multivitamins, Therapeutic with Minerals Tab PO SCH (09:22)
[2016-08-18] MEDS: Aspirin 325 MG Tab.EC PO SCH ×2 (09:22→17:30)
[2016-08-18] MEDS: Calcium Carbonate 500 MG Tab.Chew PO SCH (09:23)
[2016-08-18] MEDS: RALOXIFENE HCL 60 MG PO SCH (09:24)
[2016-08-18] MEDS: DORZOLAMIDE EYEBOTH SCH ×2 (09:28→20:49)
[2016-08-18] MEDS: TIMOLOL EYEBOTH SCH ×2 (09:28→20:49)
[2016-08-18] MEDS: Pravastatin 20 MG Tab PO SCH (20:48)
[2016-08-18] MEDS: LATANOPROST 0.005% EYEBOTH SCH (20:50)
[2016-08-18] MEDS: Acetaminophen 325 MG Tab PO PRN (21:52)
[2016-08-19] MEDS: Ibuprofen 600 MG Tab PO SCH ×4 (00:08→17:43)
[2016-08-19] MEDS: oxyCODONE 5 MG Tab PO PRN ×6 (02:53→23:23)
[2016-08-19 07:15] LABS: CHLORIDE,CL 106 mmol/L (101-111); SODIUM,NA 140 mmol/L (135-145)
[2016-08-19] MEDS: Aspirin 325 MG Tab.EC PO SCH ×2 (09:07→17:44)
[2016-08-19] MEDS: Ferrous Sulfate 325 MG Tab PO SCH (09:07)
[2016-08-19] MEDS: Cholecalciferol (Vitamin D3) 400 Unit Tab PO SCH (09:08)
[2016-08-19] MEDS: RALOXIFENE HCL 60 MG PO SCH (09:08)
[2016-08-19] MEDS: Calcium Carbonate 500 MG Tab.Chew PO SCH (09:08)
[2016-08-19] MEDS: Multivitamins, Therapeutic with Minerals Tab PO SCH (09:08)
[2016-08-19] MEDS: DORZOLAMIDE EYEBOTH SCH ×2 (09:12→21:19)
[2016-08-19] MEDS: TIMOLOL EYEBOTH SCH ×2 (09:12→21:19)
[2016-08-19] MEDS: Cyanocobalamin (Vitamin B12) 100 MCG Tab PO SCH (10:00)
[2016-08-19] MEDS: Docusate Sodium 100 MG Cap PO PRN (11:40)
[2016-08-19] MEDS: Ondansetron 4 MG Tab.DIS PO PRN ×2 (11:40→21:57)
[2016-08-19] MEDS: Acetaminophen 325 MG Tab PO PRN (18:50)
[2016-08-19] MEDS: Pravastatin 20 MG Tab PO SCH (21:18)
[2016-08-19] MEDS: LATANOPROST 0.005% EYEBOTH SCH (21:19)
[2016-08-19] MEDS: Zolpidem 5 MG Tab PO PRN (23:23)
[2016-08-20] MEDS: Ibuprofen 600 MG Tab PO SCH ×4 (02:15→19:00)
[2016-08-20] MEDS: oxyCODONE 5 MG Tab PO PRN ×5 (05:56→23:12)
[2016-08-20] MEDS: Ferrous Sulfate 325 MG Tab PO SCH (08:57)
[2016-08-20] MEDS: Ondansetron 4 MG Tab.DIS PO PRN ×2 (08:57→20:10)
[2016-08-20] MEDS: Multivitamins, Therapeutic with Minerals Tab PO SCH (08:57)
[2016-08-20] MEDS: Aspirin 325 MG Tab.EC PO SCH ×2 (08:58→19:02)
[2016-08-20] MEDS: Calcium Carbonate 500 MG Tab.Chew PO SCH (08:58)
[2016-08-20] MEDS: Cholecalciferol (Vitamin D3) 400 Unit Tab PO SCH (08:58)
[2016-08-20] MEDS: DORZOLAMIDE EYEBOTH SCH ×2 (08:59→20:32)
[2016-08-20] MEDS: RALOXIFENE HCL 60 MG PO SCH (08:59)
[2016-08-20] MEDS: TIMOLOL EYEBOTH SCH ×2 (08:59→20:32)
[2016-08-20] MEDS: Cyanocobalamin (Vitamin B12) 100 MCG Tab PO SCH (10:53)
[2016-08-20] MEDS: Pravastatin 20 MG Tab PO SCH (20:35)
[2016-08-20] MEDS: LATANOPROST 0.005% EYEBOTH SCH (21:01)
[2016-08-20] MEDS: Zolpidem 5 MG Tab PO PRN (23:14)
[2016-08-21] MEDS: Ibuprofen 600 MG Tab PO SCH ×4 (00:09→17:17)
[2016-08-21] MEDS: Ferrous Sulfate 325 MG Tab PO SCH (08:18)
[2016-08-21] MEDS: Multivitamins, Therapeutic with Minerals Tab PO SCH (08:19)
[2016-08-21] MEDS: Cyanocobalamin (Vitamin B12) 100 MCG Tab PO SCH (08:19)
[2016-08-21] MEDS: Cholecalciferol (Vitamin D3) 400 Unit Tab PO SCH (08:19)
[2016-08-21] MEDS: Calcium Carbonate 500 MG Tab.Chew PO SCH (08:20)
[2016-08-21] MEDS: Aspirin 325 MG Tab.EC PO SCH ×2 (08:20→17:18)
[2016-08-21] MEDS: Docusate Sodium 100 MG Cap PO PRN (08:27)
[2016-08-21] MEDS: oxyCODONE 5 MG Tab PO PRN ×3 (08:27→22:33)
[2016-08-21] MEDS: Polyethylene Glycol 3350 Powder 17 GM Packet PO PRN (08:28)
[2016-08-21] MEDS: TIMOLOL EYEBOTH SCH ×2 (08:42→20:40)
[2016-08-21] MEDS: RALOXIFENE HCL 60 MG PO SCH (08:42)
[2016-08-21] MEDS: DORZOLAMIDE EYEBOTH SCH ×2 (08:42→20:40)
[2016-08-21 15:31] VITALS: BP 111/46
[2016-08-21] MEDS: Pravastatin 20 MG Tab PO SCH (20:39)
[2016-08-21] MEDS: LATANOPROST 0.005% EYEBOTH SCH (20:40)
[2016-08-21] MEDS: Zolpidem 5 MG Tab PO PRN (22:33)
[2016-08-22] MEDS: Ibuprofen 600 MG Tab PO SCH ×4 (00:07→17:23)
[2016-08-22] MEDS: Calcium Carbonate 500 MG Tab.Chew PO SCH (08:02)
[2016-08-22] MEDS: Cholecalciferol (Vitamin D3) 400 Unit Tab PO SCH (08:02)
[2016-08-22] MEDS: Aspirin 325 MG Tab.EC PO SCH ×2 (08:02→17:22)
[2016-08-22] MEDS: Cyanocobalamin (Vitamin B12) 100 MCG Tab PO SCH (08:02)
[2016-08-22] MEDS: oxyCODONE 5 MG Tab PO PRN ×2 (08:02→14:31)
[2016-08-22] MEDS: Ferrous Sulfate 325 MG Tab PO SCH (08:02)
[2016-08-22] MEDS: Multivitamins, Therapeutic with Minerals Tab PO SCH (08:02)
[2016-08-22] MEDS: DORZOLAMIDE EYEBOTH SCH (08:04)
[2016-08-22] MEDS: RALOXIFENE HCL 60 MG PO SCH (08:04)
[2016-08-22] MEDS: TIMOLOL EYEBOTH SCH (08:04)
[2016-08-22] MEDS: Ondansetron 4 MG Tab.DIS PO PRN (12:04)
--- NOTE | 2016-08-23 05:26 | DISCH ---
ADMITTING DIAGNOSIS: Status post right total knee arthroplasty, requiring admission to swing bed for continued physical therapy and occupational therapy. DISCHARGE DIAGNOSIS: Status post right total knee arthroplasty. She is able to ambulate well with the help of a walker. COMORBID DIAGNOSES: Hypertension, hyperlipidemia, and history of asthma. HISTORY OF PRESENTING ILLNESS: Ms. Lizett Gómez is an 80-year-old female, with a medical history significant for hypertension, hyperlipidemia, and history of asthma as per the chart. She has had a right total knee arthroplasty and got admitted to the swing bed on 08/01/2016. While in the swing bed, the patient continued with her physical therapy and occupational therapy. She responded well to the treatment. She continued with her medications. She remained hemodynamically stable on this admission. She is discharged home in stable condition. She is advised to follow with her primary care physician next 1 week of time. PHYSICAL EXAMINATION: Vital Signs: On the day of discharge vitals; temperature of 99.3, pulse of 83, blood pressure 111/46, saturating at 98% on room air. Respiratory rate of 16. General Appearance: Patient is well oriented to time, place, and person. Follows commands spontaneously. Cardiovascular: S1, S2 heard with normal intensity. No gallops. Respiratory: Clear to auscultation bilaterally. No wheeze. No crepitations. Abdomen: Soft. Bowel sounds positive. Nontender. No rigidity. Extremities: No edema in bilateral lower extremities. Neurology: No gross focal neurological deficit. DISCHARGE MEDICATIONS: Include: 1. Tylenol 650 mg every 4 times a day as needed for pain. 2. Aspirin 325 mg daily. 3. Calcium carbonate 1000 mg daily. 4. Cyanocobalamin, vitamin B12 1000 mcg daily. 5. Docusate sodium with Senokot 1 tablet at bedtime. 6. Dorzolamide, Cosopt eyedrops 1 drop eyes both twice a day. 7. Vitamin D 1000 units daily. 8. Ferrous sulfate 325 mg daily. 9. Xalatan eyedrops both at bedtime. 10.Multivitamin 1 tablet daily. 11.MiraLAX powder 17 g oral daily as needed for constipation. 12.Pravastatin 20 mg at bedtime. 13.Evista 60 mg daily. 14.Senokot 8.6 mg twice a day. 15.Oxycodone 5 mg every 4 hours as needed for pain. 16.Tramadol 50 mg every 4 hours as needed for pain. 17.The patient is advised to stop taking the following medication: Aspirin 325 mg twice a day, it is changed to once a day. MS Contin 50 mg q.12 hourly. CONDITION ON ADMISSION: Stable. CONDITION ON DISCHARGE: Stable. Discharged to home. ACTIVITY: As tolerated. DIET: Cardiac healthy diet. FOLLOWUP: The patient is advised to follow with her primary care physician next 1 week of time and to follow with orthopedic clinic as scheduled. Spent over 35 minutes of time in evaluating and treating this patient and formulating discharge plan and coordination of cares. [facility] /[id number]
== END 2016-08-22 19:13 | disposition home or self-care (01) | DRG 561 ==
LOC: UNDOADMIN 12:09 → DL.MS 12:09
PROVIDERS: ADMIT Internal Medicine; ATTEND Internal Medicine
DX: Z47.1 Aftercare following joint replacement surgery (principal); R53.1 Weakness; I10 Essential (primary) hypertension; J45.909 Unspecified asthma, uncomplicated; Z96.651 Presence of right artificial knee joint; Z79.899 Other long term (current) drug therapy; E03.9 Hypothyroidism, unspecified
CPT/HCPCS: 36415; 80048; 85025; 97110-GO; 97110-GP; 97116-GP; 97161-GP; 97165-GO; 97530-GO; 97535-GO; A9270-GY

== ENCOUNTER 2023-06-08 17:25 | Emergency (ER) | payer MEDICARE, OTHER ==
[2023-06-08 17:54] VITALS: BP 156/73; PULSE 88
[2023-06-08 18:21] LABS: BASOPHILS PERCENT AUTO 0.4 % (0.0-1.0); EOSINOPHILS PERCENT AUTO 3.6 % (1.0-3.0); HEMATOCRIT 33.4 % (37.0-47.0); HEMOGLOBIN 10.7 g/dL (12.0-16.0); LYMPHOCYTES PERCENT AUTO 32.6 % (20.5-50.1); MEAN CORPUSCULAR HEMOGLOBIN 31.2 pg (27.0-34.0); MEAN CORPUSCULAR VOLUME 97.4 fL (80-100); MONOCYTES PERCENT AUTO 10.9 % (2-8); NEUTROPHILS PERCENT AUTO 52.5 % (42.2-75.2); PLATELET COUNT,PLT 241 10^3/uL (150-450); RED BLOOD CELL COUNT 3.43 10^6/uL (4.2-5.4); WHITE BLOOD CELL COUNT,WBC 4.5 10^3/uL (5.0-10.0)
[2023-06-08 18:34] LABS: ANION GAP 11.8 mEq/L (7-13); BLOOD UREA NITROGEN,BUN 17 mg/dL (7-18); CALCIUM 8.9 mg/dL (8.5-10.1); CARBON DIOXIDE,CO2 29 mmol/L (21-32); CHLORIDE,CL 105 mmol/L (98-107); CREATININE 0.73 mg/dL (0.55-1.02); GLUCOSE RANDOM 129 mg/dL (70-99); POTASSIUM,K 3.8 mmol/L (3.5-5.1); SODIUM,NA 142 mmol/L (136-145)
[2023-06-08 18:56] LABS: C-REACTIVE PROTEIN < 0.50 ng/dL (<=0.50); ESTIMATED GFR 80 mL/min (>=60)
== END 2023-06-08 19:05 | disposition home or self-care (01) ==
LOC: DL.ED 17:25
DX: R93.5 Abnormal findings on diagnostic imaging of other abdominal regions, including retroperitoneum (principal); Z13.9 Encounter for screening, unspecified; E78.00 Pure hypercholesterolemia, unspecified; Z88.0 Allergy status to penicillin; Z79.82 Long term (current) use of aspirin; Z79.899 Other long term (current) drug therapy
CPT/HCPCS: 36415; 80048; 85025; 86140; 99283; 99284